=== PATIENT | female | born 1975 | race Caucasian/White ===

== ENCOUNTER 2017-02-23 07:02 | Day surgery (SDC) | END 2017-02-23 14:00 | disposition home or self-care (01) ==

== ENCOUNTER → 2017-04-27 | Outpatient (CLI) | END | disposition home or self-care (01) ==

== ENCOUNTER → 2017-05-23 | Outpatient (CLI) | END | disposition home or self-care (01) ==

== ENCOUNTER 2017-06-21 14:27 | Observation (INO) | END 2017-06-22 17:15 | disposition home or self-care (01) ==

== ENCOUNTER 2017-06-29 14:15 | Emergency (ER) | END 2017-06-29 18:16 | disposition home or self-care (01) ==

== ENCOUNTER → 2017-11-02 | Outpatient (CLI) | END | disposition home or self-care (01) ==

== ENCOUNTER 2018-01-17 14:07 | Emergency (ER) | END 2018-01-17 18:01 | disposition home or self-care (01) ==